=== PATIENT | male | born 1930 | race Caucasian/White ===

== ENCOUNTER → 2017-02-25 | Outpatient (CLI) | payer OTHER ==
--- NOTE | ~2017-02-25 | MR58 ---
[facility]. [facility] A Service of [facility] & [facility] RADIOLOGY TEXT RESULTS PATIENT: JOB FARRAR LOCATION: [facility] : [birth year] UNIT #: [id number] AGE: [address]: Lito Bagley MD SEX: M ORDER DR: [id number] [address] [address] [id number] MR#: [id number] Acc #: [id number] NAME: JOB FARRAR. : 1930 SEX: M STUDY DATE/TIME: 02/25/2017 8:58 UNIT: [facility] ROOM: STUDY DESCRIPTION: MR Foot WWo Contrast Lt Attending Physician: Lito Bagley M.D. Referring Physician: Lito Bagley M.D. Ordering Physician: Lito Bagley M.D. Primary Care Physician: Wil Wiseman M.D. MRI CENTER REPORT This report is preliminary unless electronic signature is present. 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 Order requests evaluation for osteomyelitis. COMPARISON None. TECHNIQUE Multiplanar, multisequence high-field MR imaging of the left forefoot was performed both pre- and post-administration of IV gadolinium (19 mL MultiHance). FINDINGS There is a focal area of soft tissue ulceration along the plantar aspect of the forefoot, at the level of the fifth metatarsal head. This is associated with skin thickening and moderate subcutaneous soft tissue edema. Finding is consistent with cellulitis. No drainable fluid collections to suggest abscess. No significant joint effusion. There is mild reactive marrow edema in the head of the fifth metatarsal without evidence of significant marrow replacement. Early osteomyelitis is considered less likely, but not completely excluded. 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 There is generalized fatty atrophy in the intrinsic musculature of the forefoot consistent with chronic diabetic neuropathic change. Flexor and extensor tendons appear unremarkable. IMPRESSION 1. Focal soft tissue ulceration along the plantar aspect of the forefoot, at the level of the fifth metatarsal head. This is [facility] A Service of [facility] & [facility] RADIOLOGY TEXT RESULTS PATIENT: JOB FARRAR LOCATION: [facility] : [birth year] UNIT #: [id number] AGE: [address]: Lito Bagley MD SEX: M ORDER DR: associated with moderate soft tissue cellulitis, but no drainable fluid collection to suggest abscess. No significant joint effusion. There is reactive marrow edema in the head of the fifth metatarsal without evidence of significant marrow replacement. Early osteomyelitis is considered less likely at this time, but not completely excluded. 2. 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 3. Generalized fatty atrophy in the intrinsic musculature of the forefoot consistent with chronic diabetic neuropathic change. Dictated by... Dav Keith M.D. THIS IS AN ELECTRONICALLY VERIFIED REPORT Dav Keith M.D. at 02/26/2017 5:08 PM HUDSON/samira TD: 02/26/2017 04:00 JOB #: [id number] MRI CENTER REPORT Page 1 of 1
[2017-02-25 10:20] LABS: POC - GFR >60.0 mL/min (>60)
== END | disposition home or self-care (01) ==
LOC: SMRI 07:57
PROVIDERS: Internal Medicine Infectious Disease
DX: E11.621 Type 2 diabetes mellitus with foot ulcer (principal); L97.529 Non-pressure chronic ulcer of other part of left foot with unspecified severity; M19.072 Primary osteoarthritis, left ankle and foot; L03.116 Cellulitis of left lower limb; M20.12 Hallux valgus (acquired), left foot; M62.572 Muscle wasting and atrophy, not elsewhere classified, left ankle and foot
CPT/HCPCS: 73720; 82565; A9581